=== PATIENT | female | born 1985 | race Caucasian/White ===

== ENCOUNTER → 2018-01-19 14:00 | Outpatient (CLI) | payer OTHER, SELFPAY ==
[2018-01-19 16:04] LABS: Free T3 2.1 pg/mL (2.18-3.98); T4 Free Direct 0.93 ng/dL (0.76-1.46); T4 Total, Thyroxin 12.6 ug/dL (4.8-13.9)
[2018-01-19 16:06] LABS: Vitamin D,25 Hydroxy 20.6 ng/mL (29.95-100.01)
== END ==
PROVIDERS: Visit Provider Obstetrics & Gynecology
DX: E06.3 Autoimmune thyroiditis (principal); E55.9 Vitamin D deficiency, unspecified
CPT/HCPCS: 36415; 82306; 84436; 84439; 84443; 84481

== ENCOUNTER → 2018-03-11 13:18 | Outpatient (CLI) | payer OTHER, SELFPAY ==
[2018-03-11 16:17] LABS: T4 Free Direct 0.96 ng/dL (0.76-1.46)
[2018-03-16 11:19] LABS: T3 Reverse 17.6 ng/dL (9.2-24.1)
== END ==
PROVIDERS: Visit Provider Obstetrics & Gynecology
DX: E03.9 Hypothyroidism, unspecified (principal)
CPT/HCPCS: 36415; 84439; 84443; 84481; 84482

== ENCOUNTER → 2018-08-06 16:46 | Outpatient (CLI) | payer OTHER, SELFPAY ==
[2017-03-18 09:18] VITALS: BMI 43.7
[2018-08-06 18:20] LABS: AST(SGOT) 16 U/L (15-37); Alanine Aminotransfer ALT/SGPT 34 U/L (13-56); Albumin, Serum 3.6 g/dL (3.2-5.0); Alkaline Phosphatase 93 U/L (45-117); Bilirubin, Direct 0.07 mg/dL (0.00-0.30); Cholesterol 205 mg/dL (200); Globulin 4.5 g/dL (2.2-4.2); Glucose 79 mg/dL (74-106); High Density Lipoprotein 49 mg/dL; Protein, Total 8.1 g/dL (6.4-8.2); T4 Free Direct 0.94 ng/dL (0.76-1.46); T4 Total, Thyroxin 10.6 ug/dL (4.8-13.9); Triglycerides 146 mg/dL; Very Low Density Lipoprotein 29 mg/dL (5-40)
[2018-08-06 19:09] LABS: Hemoglobin A1c 5.7 % (4.2-6.3)
[2018-08-06 19:11] LABS: Vitamin B12 319 pg/mL (211-911); Vitamin D,25 Hydroxy 23.7 ng/mL (29.95-100.01)
== END ==
PROVIDERS: Family Provider Nurse Practitioner Family; PCP Nurse Practitioner Family; Visit Provider Obstetrics & Gynecology
DX: E03.9 Hypothyroidism, unspecified (principal); R63.5 Abnormal weight gain; R68.82 Decreased libido
CPT/HCPCS: 36415; 80061; 80076; 82306; 82607; 82947; 83036; 83921; 84436; 84439; 84443; 84481

== ENCOUNTER → 2019-02-08 | Outpatient (CLI) | payer OTHER, SELFPAY ==
[2017-03-18 09:18] VITALS: BMI 43.7
[2019-02-08 16:42] LABS: Free T3 2.9 pg/mL (2.18-3.98); T4 Free Direct 0.87 ng/dL (0.76-1.46); Thyroid Stim Hormone (TSH) 2.17 uIU/mL (0.358-3.74); Vitamin B12 354 pg/mL (211-911); Vitamin D,25 Hydroxy 22.6 ng/mL (29.95-100.01)
[2019-02-11 08:06] LABS: HPV APTIMA, High Risk Negative (Negative)
== END | disposition home or self-care (01) ==
LOC: WOBLAB 14:41
PROVIDERS: Family Provider Nurse Practitioner Family; PCP Nurse Practitioner Family; Visit Provider Obstetrics & Gynecology
DX: E03.9 Hypothyroidism, unspecified (principal); E55.9 Vitamin D deficiency, unspecified; D51.9 Vitamin B12 deficiency anemia, unspecified; Z12.4 Encounter for screening for malignant neoplasm of cervix
CPT/HCPCS: 36415; 82306; 82607; 84439; 84443; 84481; 87624; 88175; G0145

== ENCOUNTER → 2021-01-05 11:22 | Outpatient (CLI) | payer OTHER, SELFPAY ==
[2017-03-18 09:18] VITALS: BMI 43.7
[2021-01-05 13:03] LABS: Hematocrit 40.6 % (37-47); Hemoglobin 12.9 g/dL (12.0-15.0); Mean Corp Hgb Conc 31.8 g/dL (32-36); Mean Corpuscular Volume 85.1 fL (81-99); Mean Platelet Vol. 9.9 fl (6.2-12.0); Platelet Count 280 K/mm3 (150-450); RBC Distribution Width CV 15.1 % (11.6-14.6); Red Blood Count 4.77 M/mm3 (4.2-5.4); White Blood Count 8.8 K/mm3 (4.4-11.0)
[2021-01-05 13:21] LABS: Vitamin B12 399 pg/mL (211-911); Vitamin D,25 Hydroxy 25.2 ng/mL
[2021-01-05 13:30] LABS: ALB/GLOB Ratio 0.8 RATIO (0.9-2.4); AST(SGOT) 20 U/L (15-37); Alanine Aminotransfer ALT/SGPT 37 U/L (13-56); Albumin, Serum 3.5 g/dL (3.2-5.0); Alkaline Phosphatase 110 U/L (45-117); Anion Gap 7 (5-15); BUN 10 mg/dL (7-18); Calcium,Total 9.1 mg/dL (8.5-10.1); Chloride 106 mmol/L (98-107); Cholesterol 197 mg/dL (200); Creatinine, Serum 0.72 mg/dL (0.55-1.02); EST Glomerular Filtration Rate 98 mL/min (>60); Est Glom Filt Rate - Afr Amer 118 mL/min (>60); Free T3 3.4 pg/mL (2.18-3.98); Globulin 4.3 g/dL (2.2-4.2); Glucose 114 mg/dL (74-106); High Density Lipoprotein 41 mg/dL; Potassium 3.9 mmol/L (3.5-5.1); Protein, Total 7.8 g/dL (6.4-8.2); Sodium Level 139 mmol/L (136-145); T4 Free Direct 1.02 ng/dL (0.76-1.46); Thyroid Stim Hormone (TSH) 1.76 uIU/mL (0.358-3.74); Triglycerides 137 mg/dL; Very Low Density Lipoprotein 27 mg/dL (5-40)
== END ==
PROVIDERS: PCP Nurse Practitioner Family; Visit Provider Obstetrics & Gynecology
DX: E28.2 Polycystic ovarian syndrome (principal); Z68.42 Body mass index [BMI] 45.0-49.9, adult
CPT/HCPCS: 36415; 80053; 80061; 82306; 82607; 82746; 83036; 84439; 84443; 84480; 84481; 85027

== ENCOUNTER 2021-01-06 18:46 | Emergency (ER) | payer OTHER, SELFPAY ==
[2021-01-06 18:47] VITALS: BP 149/88; PULSE 115; RESP 18; TEMP 35.7; O2SAT 98; BMI 45.1
--- NOTE | 2021-01-06 18:59 | CT_ITS ---
INDICATION: LLQ pain -- IV PO Contrast EXAMINATION: CT Abdomen And Pelvis W/ Contrast Injection TECHNIQUE: Helically acquired images were obtained of the abdomen and pelvis after IV contrast. A radiation dose optimization technique was used for this scan. IV Contrast dosage and agent: Oral and amp; IV Gastrografin and amp; 100mL [id number] Oral contrast: Yes COMPARISON: None. FINDINGS: Visualized lung bases: Unremarkable Liver: Diffusely hypodense consistent with fatty liver. Gallbladder: Not visualized. Spleen: Unremarkable Pancreas: Unremarkable Adrenal Glands: Unremarkable Kidneys: Unremarkable Vasculature: Unremarkable GI Tract: Unremarkable Lymphadenopathy: None Peritoneum: No ascites. Bladder: Unremarkable Reproductive organs: Unremarkable Bones/Soft tissues: No suspicious osseous or soft tissue lesions CT/Abdomen/Pelvis WITH Contrast IMPRESSION: No acute abnormalities in the abdomen or pelvis. Hepatic steatosis. Electronically Signed: Fadi Del Valle MD at 21:14 EDT Tel , Service support ,
--- NOTE | 2021-01-06 19:01 | EDS_ITS ---
HPI History of Present Illness Chief Complaint: Abd Pain Informant: patient Onset/Context/Timing Onset: Days (8 days) Context: Gradual Onset Timing: Waxes and wanes Current Severity: Moderate Maximum Severity: Moderate Narrative Narrative: Patient presents with a day history of left lower quadrant abdominal pain. Patient states she took her NuvaRing out 2 weeks ago. She developed pain to her left lower quadrant 8 days ago and then started her menstrual cycle 5 days ago. 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 It was thought the patient may have shingles although she has not developed a rash. Patient states she noted blood with her stool today. She had previously noted blood but that was secondary to her menstrual cycle. [facility] Medical History (Updated 01/06/21 @ 21:[address] Sandra Lee MD) Hypothyroid Home Medications amoxicillin-pot clavulanate [Augmentin] 1 tab PO BID #20 tab 01/06/21 [Rx Last Taken Unknown] bupropion HCl 150 mg PO DAILY 01/06/21 [History Last Taken Unknown] levothyroxine [Euthyrox] 125 mcg PO DAILY 01/06/21 [History Last Taken Unknown] spironolactone 50 mg PO BID 01/06/21 [History Last Taken Unknown] Allergy/AdvReac Type Severity Reaction Status Date / Time codeine Allergy Rash Verified 01/06/21 18:49 aspirin AdvReac Vomiting Verified 01/06/21 18:49 Surgical History (Updated 01/06/21 @ 19:[address] Sandra Lee MD) H/O bilateral salpingectomy Hx of cholecystectomy Social History Smoking Status: Former smoker ROS ROS ED Constitutional Constitutional ED: Denies chills or fever(s) Eyes Eyes: Denies change in vision ENT ENT ED: Denies sore throat Cardiovascular Cardiovascular: Denies chest pain Respiratory/Chest Respiratory/Chest: Denies cough or dyspnea Gastrointestinal Gastrointestinal: Reports abdominal pain and other Details: Hematochezia ; Denies diarrhea, nausea or vomiting Genitourinary Genitourinary ED: Denies dysuria Musculoskeletal Musculoskeletal: Denies back pain Integumentary Denies rash Neurologic Neurologic: Denies headache(s) or weakness Psychiatric Psychiatric: Denies anxiety or depression Endocrine Endocrinology: Denies polydipsia or polyuria Allergic/Immunologic Allergic/Immunologic ED: Denies urticaria EXAM Physical Exam Const Vital Signs: 01/06/21 18:47 Temperature 96.3 F L Temperature Source Temporal Pulse Rate 115 H Respiratory Rate 18 Blood Pressure 149/88 H Blood Pressure Mean 108 Pulse Ox 98 Oxygen Delivery Method Room Air Positive well nourished and well developed General Appearance ED: well developed HEENT Reports normocephalic and head/scalp atraumatic Eyes PERRL and EOMs intact bilaterally Neck supple Chest Wall inspection of chest normal and palpation of chest normal Resp normal respiratory effort and clear to auscultation bilaterally Cardio regular rate and regular rhythm GI normal to inspection, nondistended, normoactive bowel sounds Palpation: soft and tender LLQ Extremity normal to inspection Neuro oriented x3 and no sensory deficits noted Sensorium / Orientation: alert Motor Exam: strength 5/5 throughout Psych mental status grossly normal Skin no rashes or lesions noted MDM MDM MDM Narrative Medical decision making narrative: Patient declined anything for pain. Patient had lab work and CT scan ordered. Lab Data Attestation: I reviewed the patient's lab results. Labs: Laboratory Results - last 24 hr 01/06/21 01/06/21 01/06/21 19:12 19:12 20:38 WBC 9.7 RBC 4.83 Hgb 13.0 Hct 40.6 MCV 84.1 MCH 26.9 L MCHC 32.0 RDW Std Deviation 47.0 H RDW Coeff of [place] 15.4 H Plt Count 287 MPV 9.8 Immature Gran % (Auto) 0.300 Neut % (Auto) 62.9 Lymph % (Auto) 30.6 [place] % (Auto) 5.0 Eos % (Auto) 0.9 Baso % (Auto) 0.3 Absolute Neuts (auto) 6.1 Absolute Lymphs (auto) 2.97 Nucleated RBC % 0 Sodium 140 Potassium 3.8 Chloride 108 H Carbon Dioxide 25.0 Anion Gap 7 BUN 12 Creatinine 0.88 Estim Creat Clear Calc 88.30 Est GFR (MDRD) Af Amer 93 Est GFR (MDRD) Non-Af 77 BUN/Creatinine Ratio 13.7 Glucose 126 H Calcium 9.1 Urine Color Yellow Urine Clarity Cloudy Urine pH 6.0 Ur Specific [place] 1.015 Urine Protein Negative Urine Glucose (UA) Normal Urine Ketones Negative Urine Occult Blood 25 H Urine Nitrite Negative Urine Bilirubin Negative Urine Urobilinogen Normal Ur Leukocyte Esterase Negative Urine RBC 0-5 SEEN Urine WBC 0-5 SEEN Ur Squamous Epith Cells 0-5 SEEN Amorphous Sediment 1+ URATE Urine Bacteria 0 SEEN Urine Mucus 0 SEEN Radiography Diagnostic Testing: Radiology Impression Abdomen/Pelvis CT 01/06/21 18:59 IMPRESSION: No acute abnormalities in the abdomen or pelvis. Hepatic steatosis. Electronically Signed: Fadi Del Valle MD at 21:14 EDT Tel , Service support , Treatment and Re-Evaluation Comments:: Test results are reviewed with the patient. Blood counts are stable and normal. CT scan does not show any evidence of bowel wall inflammation or diverticulitis. Patient has had 8 days of pain and is now having some blood noted with her stool. She will be treated with a course of Augmentin for potential bacterial infection. She will follow-up with her physician this week. She is given close follow-up and return instructions. Discharge Plan Triage Chief Complaint: Abd Pain ED Provider: Sandra Lee Dx/Rx/DC Orders Clinical Impression: Abdominal pain, GI (gastrointestinal bleed) Instructions: ED Abdominal Pain Unkn Cause Fem, ED Lower GI Bleeding (Stable) Prescriptions: New amoxicillin-pot clavulanate [Augmentin] 875-125 mg tablet 1 tab PO BID Qty: 20 RF: 0 No Action levothyroxine [Euthyrox] 125 mcg tablet 125 mcg PO DAILY RF: 0 spironolactone 50 mg tablet 50 mg PO BID RF: 0 bupropion HCl 150 mg tablet extended release 24 hr 150 mg PO DAILY RF: 0 Referrals: RAYMUNDO HOOVER [Other] - 3-5 Days Disposition Disposition: Home, self care
[2021-01-06] MEDS: 0.9% Normal Saline 1,000 ML 150 ML IV (19:40)
[2021-01-06 20:04] LABS: Absolute Lymphocyte Count 2.97 X10^3/uL (0.83-4.51); Absolute Neutrophil Count 6.1 X10^3/uL (2.0-7.7); Basophil# 0.03 X10^3/uL; Basophil% 0.3 % (0-1); Eosinophil# 0.09 X10^3/uL; Eosinophils% 0.9 % (0-5); Hematocrit 40.6 % (37-47); Lymphocyte # 2.97 X10^3/ul (0.83-4.51); Lymphocyte % 30.6 % (19-41); Mean Corpuscular Hgb 26.9 pg (27.0-32.0); Mean Corpuscular Volume 84.1 fL (81-99); Mean Platelet Vol. 9.8 fl (6.2-12.0); Monocyte# 0.49 X10^3/uL; NRBC Flagged by Analyzer 0 % (0-5); Neutrophil % 62.9 % (47-70); Platelet Count 287 K/mm3 (150-450); RBC Distribution Width CV 15.4 % (11.6-14.6); Red Blood Count 4.83 M/mm3 (4.2-5.4); White Blood Count 9.7 K/mm3 (4.4-11.0)
[2021-01-06 20:13] LABS: Anion Gap 7 (5-15); BUN 12 mg/dL (7-18); BUN/Creat Ratio 13.7 RATIO (10-20); Calcium,Total 9.1 mg/dL (8.5-10.1); Chloride 108 mmol/L (98-107); Creatinine, Serum 0.88 mg/dL (0.55-1.02); EST Glomerular Filtration Rate 77 mL/min (>60); Est Glom Filt Rate - Afr Amer 93 mL/min (>60); Glucose 126 mg/dL (74-106); Potassium 3.8 mmol/L (3.5-5.1); Sodium Level 140 mmol/L (136-145)
[2021-01-06 20:54] LABS: Bacteria 0 SEEN /hpf (None Seen); Mucous, Urine 0 SEEN /hpf (<or=2+)
[2021-01-06 20:56] LABS: Color, Urine Yellow (Yellow); Glucose, Dipstick Normal (Normal); Ketone-Dipstick Negative (Negative); Leukocyte Esterase-Dipstick Negative /ul (Negative); Nitrite-Dipstick Negative (Negative); Occult Blood-Urine 25 /ul (Negative); Protein-Dipstick Negative (Negative); Specific Gravity, Urine 1.015 (1.002-1.030); Urine Bilirubin Dipstick Negative (Negative); Urine Clarity Cloudy (Clear); Urine Urobilinogen Normal (Normal)
[2021-01-06 21:04] LABS: Amorphous Sediment 1+ URATE; Red Blood Cells-Urine 0-5 SEEN /hpf (0-5); Squamous Epithelial Cells - UA 0-5 SEEN /hpf (5-10); White Blood Cells 0-5 SEEN /hpf (0-5)
[2021-01-06] MEDS: Amox/Clavulanate 875 MG Tablet PO (21:45)
[2021-01-06 21:51] VITALS: RESP 16
== END 2021-01-06 21:52 | disposition home or self-care (01) ==
PROVIDERS: Emergency Provider Emergency Medicine
DX: R10.32 Left lower quadrant pain (principal); K92.2 Gastrointestinal hemorrhage, unspecified; E03.9 Hypothyroidism, unspecified; Z79.899 Other long term (current) drug therapy; Z87.891 Personal history of nicotine dependence
CPT/HCPCS: 74177; 80048; 81001; 85025; 96360; 96361; 99283; J7030; Q9967; A4216